=== PATIENT | male | born 1995 | race Two or more races ===

== ENCOUNTER 2018-11-14 01:25 | Emergency (ER) | payer OTHER ==
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
[2018-11-14] MEDS ORDERED: NORMAL SALINE 1000 ML 1,000 ML IV ONE (01:44)
[2018-11-14] MEDS ORDERED: ONDANSETRON HCL INJ/PF 4 MG/2 ML SDV IV ONE (01:44)
[2018-11-14] MEDS ORDERED: FENTANYL CITRATE INJ/PF 100 MCG/2 ML AMPUL IV ONE (01:45)
[2018-11-14 02:29] LABS: ABSOLUTE EOSINOPHILS # (AUTO) 0.1 10^3/uL (0.0-0.6); ABSOLUTE LYMPHOCYTES (AUTO) 1.4 10^3/uL (0.5-4.7); ABSOLUTE MONOCYTES (AUTO) 0.6 10^3/uL (0.1-1.4); ABSOLUTE NEUT (AUTO) 4.4 10^3/uL (1.7-8.2); APPEARANCE,URINE CLEAR; BASOPHILS % (AUTO) 0.5 % (0-2); BILIRUBIN,URINE NEGATIVE (NEGATIVE); COLOR,URINE YELLOW; EOSINOPHILS % (AUTO) 2.2 % (0-6); GLUCOSE, URINE NEGATIVE (NEGATIVE); HEMATOCRIT 44.2 % (37.9-51.0); HEMOGLOBIN 15.4 g/dL (13.5-17.0); KETONES,URINE NEGATIVE (NEGATIVE); LEUKOCYTE ESTERASE,URINE NEGATIVE (NEGATIVE); LYMPHOCYTES % (AUTO) 21.3 % (13-45); MEAN CORPUSCULAR HEMOGLOBIN 29.1 pg (27.0-33.4); MEAN CORPUSCULAR HGB CONC 34.9 g/dL (32.0-36.0); MEAN CORPUSCULAR VOLUME 83 fl (80-97); MONOCYTES % (AUTO) 9.4 % (3-13); NITRITE,URINE NEGATIVE (NEGATIVE); PLATELET COUNT 210 10^3/uL (150-450); PROTEIN,URINE NEGATIVE (NEGATIVE); RED BLOOD COUNT 5.31 10^6/uL (4.35-5.55); RED CELL DISTRIBUTION WIDTH 13.4 % (11.5-14.0); SEGMENTED NEUTROPHILS % (AUTO) 66.6 % (42-78); TOTAL CELLS COUNTED % (AUTO) 100 %; UROBILINOGEN,URINE NEGATIVE mg/dL (<2.0); WHITE BLOOD COUNT 6.5 10^3/uL (4.0-10.5)
[2018-11-14 02:36] VITALS: BP 144/94
[2018-11-14 02:53] LABS: ALANINE AMINOTRANSFERASE 55 U/L (21-72); ALBUMIN 4.4 g/dL (3.5-5.0); ALKALINE PHOSPHATASE 65 U/L (38-126); ANION GAP 11 (5-19); ASPARTATE AMINO TRANSFERASE 35 U/L (17-59); BILIRUBIN,DIRECT 0.3 mg/dL (0.0-0.4); BILIRUBIN,TOTAL 0.4 mg/dL (0.2-1.3); BLOOD UREA NITROGEN 8 mg/dL (7-20); CALCIUM 9.9 mg/dL (8.4-10.2); CARBON DIOXIDE 24 mmol/L (22-30); CHLORIDE 106 mmol/L (98-107); GLUCOSE 105 mg/dL (75-110); LIPASE 52.1 U/L (23-300); POTASSIUM 3.9 mmol/L (3.6-5.0); SODIUM 141.1 mmol/L (137-145)
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
[2018-11-14] MEDS ORDERED: KETOROLAC TROMETHAMINE INJ/PF 30 MG/1 ML SDV IV ONE (03:13)
--- NOTE | 2018-11-14 20:54 | EKG REPORT ---
SEVERITY:- NORMAL ECG - SINUS RHYTHM : Confirmed by: Selina Acosta MD 14-Nov-2018 20:53:54
== END 2018-11-14 04:14 | disposition home or self-care (01) ==
LOC: ER 01:25
DX: S80.02XA Contusion of left knee, initial encounter (principal); S40.812A Abrasion of left upper arm, initial encounter; V48.5XXA Car driver injured in noncollision transport accident in traffic accident, initial encounter; Y92.410 Unspecified street and highway as the place of occurrence of the external cause
CPT/HCPCS: 93005; 99291; 96361; 96374; 96375; 36415; 83690; 85025; 80053; 81001; 73564; 70450; 71260; 72125; 74177; 93010; L1830; J3010; J1885; J2405; J7030